=== PATIENT | male | born 1975 | race Hispanic/Latino ===

== ENCOUNTER 2018-10-22 06:41 | Emergency (ER) | payer OTHER, BC ==
[2018-10-22 06:52] VITALS: O2SAT 99
--- NOTE | 2018-10-22 07:17 | ED PDOC ---
Arrival/HPI - General Chief Complaint: Finger,Hand,&Wrist Time Seen by Provider: 10/22/18 07:04 Historian: Patient - History of Present Illness Narrative History of Present Illness (Text): 10/22/18 07:13 43 m presents to the ED with pain, swelling and nailbed injury after left hand was slammed between folding chair parts. Occurred this morning, pain focused to the distal left 2nd digit. No other injury sustained. Time/Duration: Prior to Arrival Symptom Onset: Sudden Activities at Onset: Light Context: Home Past Medical History - Provider Review Nursing Documentation Reviewed: Yes - Cardiac Hx Cardiac Disorders: No - Neurological Hx Neurological Disorder: No - Psychiatric Hx Substance Use: No - Anesthesia Hx Anesthesia: No Family/Social History - Physician Review Nursing Documentation Reviewed: Yes Family/Social History: No Known Family HX Smoking Status: Never Smoked Hx Alcohol Use: No Hx Substance Use: No Allergies/Home Meds Allergies/Adverse Reactions: Allergies No Known Allergies Allergy (Verified 10/22/18 06:51) Review of Systems - Physician Review All systems were reviewed & negative as marked: Yes - Review of Systems Constitutional: absent: Fevers, Night Sweats Respiratory: absent: SOB, Cough Cardiovascular: absent: Chest Pain, CORBIN Gastrointestinal: absent: Abdominal Pain, Diarrhea, Nausea, Vomiting Musculoskeletal: Arthralgias (left hand; distal left 2nd digit), Joint Swelling (left hand; distal left 2nd digit), Other (nailbed injury). absent: Back Pain, Neck Pain Neurological: absent: Headache, Dizziness Physical Exam - Physical Exam Narrative Physical Exam (Text): 10/22/18 07:15 Gen: VS reviewed, alert, well developed, well nourished, nontoxic, mild distress Eye: EOMI, PERRL Neck: supple, no adenopathy Skin: good color, no rash, no cyanosis Ext: there is tenderness and mild swelling noted to the left 2nd distal pulp. there is a subungual hematoma of the 2nd left digit invovling only the proximal nailbed. Full ROM of the involved digit. Psych: responds appropriately to questions, normal affect Neuro: oriented x3, CN2-12 intact grossly, motor intact, sensation intact Vital Signs Reviewed: Yes Vital Signs Temp Pulse Resp BP Pulse Ox 10/22/18 06:49 97.6 F 98 H 18 156/100 H 99 Temperature: Afebrile Blood Pressure: Hypertensive Pulse: Tachycardic Respiratory Rate: Normal Appearance: Positive for: Well-Appearing, Non-Toxic, Comfortable Pain Distress: None Mental Status: Positive for: Alert and Oriented X 3 Medical Decision Making ED Course and Treatment: 10/22/18 07:17 2nd digit injury, will get xrays, subungual hematoma is minimal and does not require trephenation at this time. 10/22/18 07:59 patient was instructed to not "drill a hole in his nail" as he suggested he was comfortable doing at home. this is avoid the possibility of introducing bacteria into a wound with an underlying fracture. will splint and refer to hand specialist. - RAD Interpretation Narrative RAD Interpretations (Text): 10/22/18 10:38 Hand X-Ray shows: IMPRESSION: Comminuted nondisplaced fracture tuft left index fingers distal phalanx. No dislocation or subluxation. Radiology Orders: 10/22/18 07:10 HAND LEFT 3 VIEWS ROUTINE [RAD] Stat Library Assistant: Radiologist - Medication Orders Current Medication Orders: Ibuprofen (Motrin Tab) 800 mg PO STAT STA Stop: 10/22/18 07:11 - Scribe Statement The provider has reviewed the documentation as recorded by the Scribe Felix Mcintosh All medical record entries made by the Scribe were at my direction and personally dictated by me. I have reviewed the chart and agree that the record accurately reflects my personal performance of the history, physical exam, medical decision making, and the department course for this patient. I have also personally directed, reviewed, and agree with the discharge instructions and disposition. Disposition/Present on Arrival - Present on Arrival Any Indicators Present on Arrival: No History of DVT/PE: No History of Uncontrolled Diabetes: No Urinary Catheter: No History of Decub. Ulcer: No History Surgical Site Infection Following: None - Disposition Have Diagnosis and Disposition been Completed?: Yes Diagnosis: Phalanx, distal fracture of finger, Subungual hematoma Disposition: HOME/ ROUTINE Disposition Time: 08:00 Patient Plan: Discharge Condition: STABLE Discharge Instructions (ExitCare): Finger Fracture Additional Instructions: keep the finger in the splint to help with the fracture healing. follow up with the hand specialist (preferably within one week) to ensure proper healing of the fracture. the hand specialist will likely also have more comfortable and functional finger splints. Prescriptions: Ibuprofen [Motrin Tab] 800 mg PO TID #90 tab Referrals: Domingo Ross MD [Primary Care Provider] - Follow up with primary Butch Hernandez MD [Staff Provider] - Follow up with primary Bridger Castro MD [Staff Provider] - Follow up with primary Forms: [employer] (Yakut), WORK NOTE
[2018-10-22 08:12] VITALS: BP 146/85; PULSE 88; RESP 14; TEMP 98.3
--- NOTE | 2018-10-22 10:43 | RAD ---
PROCEDURE: Left Hand Radiographs. HISTORY: injury, focus distal 2nd digit COMPARISON: None. FINDINGS: BONES: Comminuted fracture of the tuft of the distal phalanx left index finger is identified nondisplaced. Local soft tissue edema appears moderate. This does not appear articular. Remaining bones appear unremarkable otherwise throughout the left hand. JOINTS: No dislocation or subluxation. No osteoarthritic changes. SOFT TISSUES: As above. OTHER FINDINGS: None. IMPRESSION: Comminuted nondisplaced fracture tuft left index fingers distal phalanx. No dislocation or subluxation.
== END 2018-10-22 08:12 | disposition home or self-care (01) ==
LOC: ED 06:41
DX: S62.631A Displaced fracture of distal phalanx of left index finger, initial encounter for closed fracture (principal); W23.0XXA Caught, crushed, jammed, or pinched between moving objects, initial encounter